=== PATIENT | female | born 1970 | race Caucasian/White ===

== ENCOUNTER 2016-07-04 04:39 | Observation (INO) | payer OTHER ==
--- NOTE | ~2016-07-04 | DS ---
Discharge Summary [facility] [address] [place]. [address] NAME: BETO FIORE : 74 STATUS : DIS Yamileth PAT#: [id number] AGE: 46 ADM/REG DATE : 07/04/16 MR#: [id number] REPORT SERV DATE: 07/06/16 DICTATED BY: PADMINI ALFARO DATE: 07/05/16 REPORT STATUS : Draft TRANSCRIBED BY: MODArgelia DATE: 07/05/16 ADMISSION DATE: 07/04/2016 DISCHARGE DATE: 07/05/2016 DIAGNOSES ON DISCHARGE: 1. Atypical chest pain, probably noncardiac in origin. This has resolved. This could be secondary to severe gastroesophageal reflux disease for which the patient will be going home on Protonix 40 mg twice a day for a month. 2. The patient had a cardiac stress test or nuclear myocardial perfusion test which came back completely negative for ischemia and with an ejection fraction that is normal with EF of 55% to 60%. 3. Other diagnoses that are stable in this patient include; dyslipidemia for which the patient is on statin. 4. Hypertension, which was uncontrolled, and now it is much better controlled after the addition of metoprolol 12.5 mg p.o. b.i.d., and I have given the patient a prescription for this. 5. Uncontrolled diabetes mellitus with an A1c of greater than 10 - the patient prefers making adjustments in her insulin, and following up regarding this with Dr. Alisa Nance, her reach truck operator with whom she has an appointment within the next seven to eight days. At this time, the patient has already received diabetic education, and the patient will be going home after diabetic education. 6. Other diseases that are stable at this time include; cervical cancer status post surgery, which is stable; history of colonic polyps, which is stable; history of splenomegaly, which is stable; and gastroesophageal reflux disease. 7. History of depression, which is stable. 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 She essentially came in with the diagnosis of chest pain. The patient was also noted to have extremely high blood pressure and blood sugars at this time. The patient was also started on additional antihypertensives which include metoprolol. With appropriate blood glucose management with sliding scale insulin and addition of metoprolol, her blood pressure nicely came down. Blood sugar levels were also controlled in the last 24 hours. Her chest pain also resolved. The patient actually underwent a myocardial perfusion test with stress and rest, and this showed no evidence of any ischemia. LVEF was normal between 55% and 60%. This was communicated with the patient, and hence the patient is being sent home on the following medications. One new medication that she is being sent home on include metoprolol 12.5 mg p.o. b.i.d. The patient will resume her combination of ARB and HCTZ, which she takes at this time. It is a combination of Cozaar 100 mg and HCTZ 25 mg; the patient will resume Estrace 2 mg once a day; aspirin 81 mg once a day; her home dose of her insulin; the patient will also resume her Lipitor 40 mg at bedtime; Paxil 20 mg tablets, 40 mg once a day; however we will go ahead and increase her Protonix to 40 mg twice a day at this time. The most recent labs that I have on this patient include the following; relevant labs show a normal troponin. The patient had at least two normal troponin I levels. Her electrolyte profile on the day of discharge shows completely normal electrolytes, normal BUN and Discharge Summary [address] [address] NAME: BETO FIORE : 74 STATUS : DIS Yamileth PAT#: [id number] AGE: 46 ADM/REG DATE : 07/04/16 MR#: [id number] REPORT SERV DATE: 07/06/16 DICTATED BY: PADMINI ALFARO DATE: 07/05/16 REPORT STATUS : Draft TRANSCRIBED BY: MODL DATE: 07/05/16 creatinine. BNP; her brain natriuretic peptide is normal at 31.4. A1c; however, is 10.6 reflecting uncontrolled diabetes mellitus. The patient did have a chest x-ray that shows no radiographic evidence of any acute process. Hence, the patient is being discharged home in stable condition with advice to follow up with her iron guardrail installer with whom she has an appointment tomorrow, and also with her reach truck operator Dr. Alisa Nance within the next one week as scheduled. I have spent about 40 minutes in coordinating discharge care of this patient including face- to-face encounter and summarizing this discharge. JOSE G/ELSY Padmini Alfaro M.D. / [id number] CC: Padmini Alfaro M.D. Hiren Aminers
--- NOTE | ~2016-07-04 | HP ---
History And Physical [address] [place]. [address] NAME: BETO FIORE : 74 STATUS : ADM Yamileth PAT#: [id number] AGE: 46 ADM/REG DATE : 07/04/16 MR#: [id number] REPORT SERV DATE: 07/04/16 DICTATED BY: RENY SOTO DATE: 07/04/16 REPORT STATUS : Draft TRANSCRIBED BY: MODArgelia DATE: 07/04/16 DATE OF ADMISSION: 07/04/2016 CHIEF COMPLAINT: A 46-year-old female presenting with chest pain and uncontrolled blood sugars. HISTORY OF PRESENT ILLNESS: The patient's history was obtained through an interview with the patient and mother, coupled with review of [facility] medical records and [facility]. About three weeks ago, the patient began to have chest discomfort, but it really is progressed in the last two nights. She describes mid substernal abdominal pain, a dull aching, sometimes sharp quality without radiation, 8/10 severity, exacerbated by exertion and relieved by rest. She has associated shortness of breath, described as in the dyspnea on exertion. She has nausea as well. No vomiting. No orthopnea. No lower extremity edema. No cough. No fevers or chills. She has felt lightheadedness and a slight dizziness. She admits that her blood sugars are often between the 200s and 300s. She has had medications recently adjusted by a new medical auditor that she is seeing, Dr. Erica Nance. No abdominal pain. No change of bowel or bladder habit. REVIEW OF SYSTEMS: Otherwise review of systems was obtained and was negative. PAST MEDICAL HISTORY: 1. Diabetes, seen by Dr. Erica Nance. 2. Cervical cancer, 1998, status post surgery. 3. Colon polyps, seen by Dr. Baez. 4. Splenomegaly. 5. Gastroesophageal reflux disorder. 6. Depression. 7. Hypertension. 8. Elevated cholesterol. 9. HSE. PAST SURGICAL HISTORY: 1. Cholecystectomy. 2. Appendectomy. 3. Cervical spine surgery. 4. Breast reduction. 5. Hysterectomy. 6. Bilateral carpal tunnel release. History And Physical [address] [address] NAME: BETO FIORE DILCIA : 74 STATUS : ADM Yamileth PAT#: [id number] AGE: 46 ADM/REG DATE : 07/04/16 MR#: [id number] REPORT SERV DATE: 07/04/16 DICTATED BY: RENY SOTO DATE: 07/04/16 REPORT STATUS : Draft TRANSCRIBED BY: ELSY DATE: 07/04/16 ALLERGIES: NO KNOWN DRUG ALLERGIES. SOCIAL HISTORY: The patient lives in [place], [place]. She has no children. 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 No tobacco abuse. No alcohol abuse. FAMILY HISTORY: Father with heart disease. Mother with brain aneurysm. There is a family history of liver disease. CURRENT MEDICATIONS: Aspirin 81 mg daily, Lipitor 40 mg daily, estradiol 2 mg in the morning, Humalog 15 units with each meal, losartan/hydrochlorothiazide p.o. daily, magnesium 400 mg p.o. daily, Prilosec 40 mg p.o. daily, Paxil 40 mg p.o. daily, Soliqua basal insulin 40 units subcutaneous each evening, potassium 20 mEq p.o. daily. PHYSICAL EXAMINATION: VITAL SIGNS: Temperature 97.8, pulse 83, blood pressure 207/97, respiratory rate 20, O2 saturation 98% on room air. GENERAL: A pleasant, cooperative female. No evidence of distress or chest pain at this time. HEENT: Pupils equal, round, and reactive to light. No conjunctival pallor. No scleral icterus. Nares are patent. Oropharynx is clear of obstruction. Moist mucous membranes. NECK: Trachea midline. No thyromegaly. LYMPH: No cervical lymphadenopathy. No supraclavicular lymphadenopathy. RESPIRATORY: Clear to auscultation at bases. No wheezes, rales, or rhonchi. Normal respiratory effort. CARDIOVASCULAR: Regular rate and rhythm. No murmurs, rubs, or gallops. No extremity edema is appreciated. ABDOMEN: Soft, nontender, nondistended. I do not appreciate hepatosplenomegaly by exam. DERMATOLOGICAL: Warm and dry extremities. No pallor. No cyanosis. PSYCHIATRIC: Normal affect. Good mood. Alert and oriented x3. LABORATORY DATA: White blood cell count 6.8, hemoglobin 12, hematocrit 37, platelets 181. Sodium 138, potassium 4.0, chloride 100, bicarb 30, BUN 12, creatinine 0.9, glucose 532. Troponin negative. INR 1.1. STUDIES: 1. Chest x-ray by my own evaluation shows no acute cardiopulmonary process. 2. EKG by my own evaluation shows sinus rhythm, no major abnormalities. ASSESSMENT AND PLAN: 1. Chest pain, on aspirin. Check a stress echocardiogram. Check telemetry. 2. Uncontrolled diabetes. The patient admits that she was binge eating some chips prior to coming to the hospital that may have contributed to this, but we will try basal insulin and aggressive sliding scale insulin to monitor closely. Check hemoglobin A1c and obtain a peer educator consult. History And Physical [address] [address] NAME: BETO FIORE : 74 STATUS : ADM Yamileth PAT#: [id number] AGE: 46 ADM/REG DATE : 07/04/16 MR#: [id number] REPORT SERV DATE: 07/04/16 DICTATED BY: RENY SOTO DATE: 07/04/16 REPORT STATUS : Draft TRANSCRIBED BY: ELSY DATE: 07/04/16 KPL/ELSY Reny Soto M.D. / [id number] CC: Fabiola Ravi II, M.D. Ana Cornea, M.D.
[~2016-07-04 04:39] MED LIST: ALTA5 PO; ALTACE10 MG PO; ASAB PO; COREG3 PO; COREG6 PO; DELESTROGE IM; DIABETA5 PO; ESTRADIOL2 MG PO; HALF81 PO; HARD NAILS PO; HUMALOG SC; HYDROCHLOROT25 MG PO; HYZAAR 100/25 T1 TAB PO; K-TABS10 MEQ PO; KDUR10 PO; LANTUS SC; LEVEMIR SC; MAGNESIUM PO; MAGOX4 PO; PAXIL40 MG PO; PEP20 PO; PRAVACHOL40 MG PO; PRILOSEC40 MG PO; PROZAC40 MG PO; [UNRECOGNIZED DRUG - OTHER]; [UNRECOGNIZED DRUG - OTHER] PO
[2016-07-04 04:49] LABS: BASOPHILS 0.1 %; BASOPHILS ABSOLUTE 0.01 10/3/uL (0.0-0.16); EOSINOPHILS 0.9 %; EOSINOPHILS ABSOLUTE 0.06 10/3/uL (0.0-0.53); ER CBC TAT 0 Hrs 05 Mins; HEMATOCRIT 37.9 % (36.0-48.0); HEMOGLOBIN 12.9 g/dL (12.0-16.0); IMMATURE GRANULOCYTES 0.1 %; IMMATURE GRANULOCYTES ABSOLUTE 0.01 10/3/uL (0.0-0.11); LYMPHOCYTES 35.6 %; LYMPHOCYTES ABSOLUTE 2.43 10/3/uL (0.67-4.30); MEAN CORPUSCULAR HEMOGLOB 28.6 pg (26.0-34.0); MEAN PLATELET VOLUME 11.1 fL (9.2-13.0); MONOCYTES 6.2 %; MONOCYTES ABSOLUTE 0.42 10/3/uL (0.21-1.20); NEUTROPHILS 57.1 %; NEUTROPHILS ABSOLUTE 3.89 10/3/uL (2.02-8.40); PLATELET COUNT 181 10/3/uL (150-400); RBC DISTRIBUTION WIDTH 12.7 % (12.0-16.0); RED CELL COUNT 4.51 10/6/uL (4.0-5.6); WHITE BLOOD CELLS 6.8 10/3/uL (4.5-10.5)
[2016-07-04 04:51] LABS: MANUAL DIFF NO %
[2016-07-04] MEDS ORDERED: [UNRECOGNIZED DRUG - OTHER] SC (04:51)
[2016-07-04] MEDS ORDERED: LIPITOR40 PO (04:51)
[2016-07-04 04:57] LABS: INTERNATIONAL NORMAL RATI 1.1 UNITS (-); PARTIAL THROMBO TIME 30.9 SEC (22.5-37.2); PROTIME (NOT ORD) 14.4 SEC (12.0-14.5)
[2016-07-04 05:07] LABS: CALCIUM, SERUM 9.2 MG/DL (8.5-10.4); CHEST PAIN PROFILE TAT 0 Hrs 23 Mins; CHLORIDE, SERUM 100 MMOL/L (96-112); CO2 (CARBON DIOXIDE) 30 MMOL/L (24-34); CREATININE 0.93 MG/DL (0.55-1.02); GFR AFRICAN AMERICAN 87 ML/MIN (>=60); GFR NON AFRICAN AMERICAN 75 ML/MIN (>=60); SODIUM, SERUM 138 MMOL/L (135-148); TROPONIN I <0.02 NG/ML (<0.05)
[2016-07-04 05:08] LABS: BUN (BLOOD UREA NITROGEN) 12 MG/DL (6-23)
[2016-07-04 05:09] LABS: GLUCOSE, SERUM 532 MG/DL (60-99)
[2016-07-04 09:33] LABS: BASOPHILS 0.3 %; BASOPHILS ABSOLUTE 0.02 10/3/uL (0.0-0.16); EOSINOPHILS 1.5 %; EOSINOPHILS ABSOLUTE 0.11 10/3/uL (0.0-0.53); HEMATOCRIT 37.3 % (36.0-48.0); HEMOGLOBIN 12.8 g/dL (12.0-16.0); IMMATURE GRANULOCYTES 0.1 %; IMMATURE GRANULOCYTES ABSOLUTE 0.01 10/3/uL (0.0-0.11); LYMPHOCYTES 38.6 %; LYMPHOCYTES ABSOLUTE 2.86 10/3/uL (0.67-4.30); MANUAL DIFF NO %; MEAN CORPUS HGB CONC 34.3 g/dL (32.0-36.0); MEAN CORPUSCULAR HEMOGLOB 28.7 pg (26.0-34.0); MEAN CORPUSCULAR VOLUME 83.6 fL (80-100); MEAN PLATELET VOLUME 10.5 fL (9.2-13.0); MONOCYTES 5.3 %; MONOCYTES ABSOLUTE 0.39 10/3/uL (0.21-1.20); NEUTROPHILS 54.2 %; NEUTROPHILS ABSOLUTE 4.01 10/3/uL (2.02-8.40); PLATELET COUNT 164 10/3/uL (150-400); RBC DISTRIBUTION WIDTH 12.8 % (12.0-16.0); RED CELL COUNT 4.46 10/6/uL (4.0-5.6); WHITE BLOOD CELLS 7.4 10/3/uL (4.5-10.5)
[2016-07-04 09:39] LABS: INTERNATIONAL NORMAL RATI 1.1 UNITS (-); PARTIAL THROMBO TIME 30.3 SEC (22.5-37.2); PROTIME (NOT ORD) 14.2 SEC (12.0-14.5)
[2016-07-04 09:56] LABS: A/G RATIO 0.9 (0.7-1.9); ALBUMIN 3.4 G/DL (3.5-5.0); BUN (BLOOD UREA NITROGEN) 12 MG/DL (6-23); CALCIUM, SERUM 8.9 MG/DL (8.5-10.4); CHLORIDE, SERUM 104 MMOL/L (96-112); CO2 (CARBON DIOXIDE) 29 MMOL/L (24-34); CREATININE 0.66 MG/DL (0.55-1.02); GFR AFRICAN AMERICAN 125 ML/MIN (>=60); GFR NON AFRICAN AMERICAN 107 ML/MIN (>=60); GLOBULIN 3.8 G/DL (2.5-4.1); POTASSIUM, SERUM 3.4 MMOL/L (3.5-5.3); SGOT(AST) 21 U/L (5-40); SGPT(ALT) 49 U/L (5-65); SODIUM, SERUM 141 MMOL/L (135-148); TOTAL BILIRUBIN 0.4 MG/DL (0-1.2); TOTAL PROTEIN 7.2 G/DL (6.0-8.5); TROPONIN I <0.02 NG/ML (<0.05)
[2016-07-04 09:57] LABS: ALKALINE PHOSPHATASE 95 U/L (45-117); B NATRIURETIC PEPTIDE (BNP) 31.4 PG/ML (< 100.0); GLUCOSE, SERUM 306 MG/DL (60-99)
[2016-07-04 10:12] LABS: GLYCOHEMOGLOBIN (HbA1c) 10.6 % (4.7-6.1)
[2016-07-05 07:08] LABS: BUN (BLOOD UREA NITROGEN) 10 MG/DL (6-23); CALCIUM, SERUM 9.2 MG/DL (8.5-10.4); CHLORIDE, SERUM 104 MMOL/L (96-112); CO2 (CARBON DIOXIDE) 31 MMOL/L (24-34); CREATININE 0.52 MG/DL (0.55-1.02); GFR AFRICAN AMERICAN 135 ML/MIN (>=60); GFR NON AFRICAN AMERICAN 116 ML/MIN (>=60); POTASSIUM, SERUM 3.7 MMOL/L (3.5-5.3); SODIUM, SERUM 142 MMOL/L (135-148)
[2016-07-05 07:10] LABS: GLUCOSE, SERUM 145 MG/DL (60-99)
[2016-07-05] MEDS ORDERED: MAGOX4 PO (13:28)
[2016-07-05] MEDS ORDERED: LOP25 PO (13:29)
[2016-07-05] MEDS ORDERED: PROTONIX PO (13:30)
[2016-07-11] MEDS ORDERED: NORV5 PO (17:45)
== END 2016-07-05 15:25 | disposition home or self-care (01) ==
LOC: ER 04:39 → 6NO 05:45
PROVIDERS: Hospitalist; Nurse Practitioner Acute Care
DX: R07.89 Other chest pain (principal); E78.5 Hyperlipidemia, unspecified; I10 Essential (primary) hypertension; E11.9 Type 2 diabetes mellitus without complications; F32.9 Major depressive disorder, single episode, unspecified; R16.1 Splenomegaly, not elsewhere classified; K21.9 Gastro-esophageal reflux disease without esophagitis; E78.00 Pure hypercholesterolemia, unspecified; Z85.41 Personal history of malignant neoplasm of cervix uteri; Z86.010 Personal history of colon polyps; Z90.49 Acquired absence of other specified parts of digestive tract; Z90.710 Acquired absence of both cervix and uterus; Z98.890 Other specified postprocedural states
CPT/HCPCS: 71010; 78452; 80048; 80053; 82962; 83036; 83735; 83880; 84443; 84484; 85025; 85610; 85730; 93005; 93017; 96372; 96374; 96375; 99285; A9270-GY; A9502; G0378; J0360